=== PATIENT | male | born 1975 | race Two or more races ===

== ENCOUNTER 2018-09-07 14:42 | Emergency (ER) | payer OTHER ==
[~2018-09-07] VITALS: Ht 193 cm; Wt 123.8 kg
[2018-09-07] MEDS ORDERED: LISINOPRIL10 MG (15:04)
== END 2018-09-07 16:21 | disposition home or self-care (01) ==
LOC: ER 14:42
DX: M54.42 Lumbago with sciatica, left side (principal)

== ENCOUNTER 2018-12-13 06:25 | Emergency (ER) | payer OTHER ==
[~2018-12-13] VITALS: Ht 193 cm; Wt 120.2 kg
[~2018-12-13 06:25] MED LIST: LISINOPRIL10 MG
== END 2018-12-13 11:30 | disposition home or self-care (01) ==
LOC: ER 06:25
DX: R50.9 Fever, unspecified (principal)